=== PATIENT | female | born 1970 | race Two or more races ===

== ENCOUNTER 2021-10-05 12:54 | Emergency (ER) | payer OTHER, SELFPAY ==
[2021-10-05 13:49] VITALS: BP 100/37; PULSE 75; RESP 18; TEMP 36.4; O2SAT 98; BMI 31.8
--- NOTE | 2021-10-05 14:33 | ED_ITS ---
HPI - General Adult General Chief complaint: General Medical Stated complaint: psych med refill Time Seen by Provider: 10/05/21 14:33 Source: patient Mode of arrival: ambulatory Limitations: no limitations History of Present Illness HPI narrative: Patient unable to get a doctor, therapist, or a psychiatrist. Patient has been weaning off of her medication because she doesn't have a doctor. She is here because of no medication. No thoughts of her hurting herself. Related Data Previous Rx's Medication Instructions Recorded bupropion HCl 150 mg tablet,12 hr 150 mg PO Q12H #30 tab 10/05/21 sustained-release fluoxetine 40 mg capsule (Prozac) 40 mg PO DAILY #20 cap 10/05/21 gabapentin 800 mg tablet 800 mg PO BID #30 tab 10/05/21 lamotrigine 200 mg tablet 200 mg PO DAILY #20 tab 10/05/21 (Lamictal) levothyroxine 25 mcg capsule 25 mcg PO DAILY #20 cap 10/05/21 Allergies Allergy/AdvReac Type Severity Reaction Status Date / Time hydroxyzine [From Vistaril] Allergy Nausea and Verified 10/05/21 13:55 Vomiting Review of Systems Constitutional: Constitutional: Reports no additional constitutional complaints Eyes: Eyes: Reports no additional eye complaints ENT: Denies dizziness Cardiovascular: Cardiovascular: Reports no additional cardiovascular co mplaints Respiratory: Respiratory: Reports as per HPI Gastrointestinal: Gastrointestinal: Reports no additional gastrointestinal complaints Genitourinary: Genitourinary: Reports no additional female genitourinary complaints Musculoskeletal: Musculoskeletal: Reports no additional musculoskeletal complaints Integumentary/Breasts: Skin/Breast: Denies rash Neurologic: Reports system reviewed and no additional complaints, except as documented, Denies dizziness and Denies Sensory deficit (Neuro) Psychiatric: Psychiatric: Denies anxiety [facility] Social History Social History Advance Directives: No Advance Directives Information Provided: Yes Patient : No Physical Exam ED Vital Signs: Vital Signs - 24 hr 10/05/21 13:49 Temperature 97.5 F Pulse Rate 75 Respiratory Rate 18 Blood Pressure 100/37 L Pulse Oximetry 98 BMI result Body Mass Index 31.8 Const General: healthy appearing Nutritional Appearance: average body habitus Orientation/consciousness: oriented to person and patient oriented x3 Limitations: no limitations HENMT Head: Yes normal to inspection Ears: external ears normal General nose exam: Normal external nose present Mouth: Normal oral and palatal mucosa present and oropharynx normal Throat: Yes posterior oropharynx normal Eyes General: appearance normal, both eyes and all related structures Neck Neck: Yes normal visual inspection Chest Chest palpation & inspection: normal inspection of the chest Resp Auscultation: clear to auscultation bilaterally Cardio Jugular venous distension: no JVD Rate: regular rate Rhythm: regular rhythm Heart sounds: S1 normal heart sound present and S2 normal heart sound present GI Inspection: Yes normal to inspection Palpation (GI): Soft to palpation, nontender and No hepatosplenomegaly present Auscultation: normal bowel sounds General: Yes no CVA tenderness Back/Spine/Pelvis Back: no CVA tenderness Skin General skin exam: no rashes or lesions noted Neuro General: oriented to person and patient oriented x3 Cranial nerves: Yes CN's II-XII intact bilaterally Motor exam (neuro): 5/5 motor strength present throughout Sensory Exam: No Sensory deficit (Neuro) Extrem General: Yes normal to inspection Psych Other: flat affect Course Reevaluation(s) Reevaluation #1: wrote the patient for non narcotic medications while she tries to sort out her insurance Time: 14:45 Discharge Plan Discharge Clinical Impression: Depression, Bipolar 1 disorder Patient Disposition: Home, Self-Care Instructions: Bipolar Disorder (ED), Depression (ED) Prescriptions: New bupropion HCl 150 mg tablet sustained-release 12 hr 150 mg PO Q12H Qty: 30 0RF lamotrigine [Lamictal] 200 mg tablet 200 mg PO DAILY Qty: 20 0RF fluoxetine [Prozac] 40 mg capsule 40 mg PO DAILY Qty: 20 0RF levothyroxine 25 mcg capsule 25 mcg PO DAILY Qty: 20 0RF gabapentin 800 mg tablet 800 mg PO BID Qty: 30 0RF Referrals: Physician,Unknown J [Primary Care Provider] - 10 days
--- NOTE | 2021-10-05 14:53 | PC.NURSE ---
pt is grateful for quick service today and help getting medications. pt is waiting for pcp appt.
== END 2021-10-05 14:54 | disposition home or self-care (01) ==
PROVIDERS: Emergency Provider Emergency Medicine
DX: F31.30 Bipolar disorder, current episode depressed, mild or moderate severity, unspecified (principal)
CPT/HCPCS: 99282; 99283

== ENCOUNTER 2022-05-07 12:17 | Emergency (ER) | payer OTHER, SELFPAY ==
[2022-05-07 12:19] VITALS: BP 103/47; PULSE 62; RESP 18; TEMP 37.2; O2SAT 99; BMI 33.6
--- NOTE | 2022-05-07 12:31 | ED_ITS ---
HPI - Female Genitourinary General Chief complaint: Urogenital-Female Stated complaint: uti Time Seen by Provider: 05/07/22 12:27 Source: patient Mode of arrival: ambulatory Limitations: no limitations History of Present Illness HPI Narrative: 51 yo female here with 2 days of urinary frequency, urgency, dysuria, suprapubic discomfort, nausea. No abdominal pain, back pain, fever or vomiting. Patient tells me that she is in a monogamous relationship with 1 male partner. She has had no new sexual partners. She is not concern for STD exposure. She does have an IUD so does not get her period. Related Data Previous Rx's Medication Instructions Recorded bupropion HCl 150 mg tablet,12 hr 150 mg PO Q12H #30 tabs 10/05/21 sustained-release fluoxetine 40 mg capsule (Prozac) 40 mg PO DAILY #20 caps 10/05/21 gabapentin 800 mg tablet 800 mg PO BID #30 tabs 10/05/21 lamotrigine 200 mg tablet 200 mg PO DAILY #20 tabs 10/05/21 (Lamictal) levothyroxine 25 mcg capsule 25 mcg PO DAILY #20 caps 10/05/21 nitrofurantoin 100 mg PO Q12H 5 days #10 caps 05/07/22 monohydrate/macrocrystals 100 mg capsule (Macrobid) phenazopyridine 200 mg tablet 200 mg PO TID PRN pain 6 doses #10 05/07/22 (Pyridium) tabs Allergies Allergy/AdvReac Type Severity Reaction Status Date / Time hydroxyzine [From Vistaril] Allergy Nausea and Verified 10/05/21 13:55 Vomiting Review of Systems Review of Systems: Yes all other systems are reviewed and are negative Constitutional: Constitutional: Reports no additional constitutional complaints, Denies body ache(s), Denies chills, Denies fever(s), Denies headache(s) and Denies weakness Eyes: Eyes: Reports no additional eye complaints and Denies change in vision ENT: Reports system reviewed and no additional complaints, except as documented, Denies dizziness, Denies headache(s), Denies nasal congestion, Denies nasal discharge and Denies neck pain Cardiovascular: Cardiovascular: Reports no additional cardiovascular complaints, Denies chest pain, Denies leg edema and Denies dyspnea Respiratory: Respiratory: Reports no additional respiratory complaints, Denies cough and Denies dyspnea Gastrointestinal: Gastrointestinal: Reports no additional gastrointestinal complaints, Denies abdominal pain, Denies diarrhea, Reports nausea and Denies vomiting Genitourinary: Genitourinary: Reports no additional female genitourinary complaints, Reports dysuria, Denies pelvic pain, Denies flank pain, Denies urinary incontinence, Reports urinary urgency, Denies vaginal discharge, Denies vaginal dryness, Denies vaginal odor and Denies vaginal pruritus Musculoskeletal: Musculoskeletal: Reports no additional musculoskeletal complaints, Denies back pain, Denies arthralgias, Denies joint swelling, Denies neck pain, Denies numbness and Denies tingling Integumentary/Breasts: Skin/Breast: Reports system reviewed and no additional complaints, except as docu and Denies rash Neurologic: Reports system reviewed and no additional complaints, except as documented, Denies Abnormal speech present, Denies dizziness, Denies headache(s), Denies numbness, Denies tingling and Denies weakness PMFSH Past Medical History Attestation statement: The following information was validated with the patient. Source: old records reviewed and nursing notes reviewed Social History Social History Advance Directives: No Advance Directives Information Provided: No Physical Exam Vital Signs: Vital Signs: Last Vital Signs Temp 98.9 F 05/07/22 12:19 Pulse 62 05/07/22 12:19 Resp 18 05/07/22 12:19 BP 103/47 L 05/07/22 12:19 Pulse Ox 99 05/07/22 12:19 O2 Del Method 05/07/22 12:19 BMI result Body Mass Index 33.6 Const: General: cooperative, healthy appearing, comfortable and no acute distress Orientation/consciousness: patient oriented x3 Limitations: no limitations HEENT: Head: Yes normal to inspection Ears: hearing grossly normal bilaterally General nose exam: Normal external nose present Face and sinus: Yes normal facial exam Mouth: Normal oral and palatal mucosa present Throat: Yes posterior oropharynx normal Eyes: General: appearance normal, both eyes and all related structures Pupils: Equal, round and reactive pupils present Neck: Neck: Yes normal visual inspection Chest: Chest palpation & inspection: normal inspection of the chest Resp: Effort & Inspection: normal respiratory effort Auscultation: clear to auscultation bilaterally Cardio: Rate: regular rate Rhythm: regular rhythm Peripheral pulses: Peripheral pulses 2+ throughout GI: Inspection: Yes normal to inspection Palpation (GI): Soft to palpation and nontender Auscultation: normal bowel sounds : General: Yes no CVA tenderness Back/Spine/Pelvis: Back: no CVA tenderness Thoracic/Lumbar Spine: thoracic and lumbar spine normal to inspection Skin: General skin exam: no rashes or lesions noted Neuro: General: patient oriented x3, no focal motor deficits and normal sensation to monofilament Cranial nerves: Yes Equal, round and reactive pupils present Cognition (Neuro): normal cognition Speech: No Abnormal speech present Gait exam (Neuro): Normal gait present Motor exam (neuro): 5/5 motor strength present throughout Extrem: General: Yes normal to inspection Course Course Course Narrative: Now report vaginal discharge. No pelvic pain. Patient will self swab for CT NG, BV panel. Reevaluation(s) Reevaluation #1: [id number] consistent with UTI. Patient was also tested for CT NG and BV. Patient is not concern for STDs and would like to wait for results to come back before being treated. She is aware she may need to return for treatment. Reviewed worrisome signs and symptoms of when to return to the emergency room. Comfortable discharge home. MDM - Female Genitourinary MDM Narrative Medical decision making narrative: 51-year-old female here with UTI symptoms since yesterday. On exam abdomen is soft and nontender. No CVA tenderness. Vitals are stable. Overall nontoxic appearing. Will send UA Medical Records Attestation: I reviewed the patient's medical records. Lab Data Attestation: I reviewed the patient's lab results. Labs: Lab Results 05/07/22 05/07/22 Range/Units 12:52 12:52 Urine Color Yellow Urine Appearance Cloudy Urine pH 7.0 (5.0-9.0) Ur Specific [place] 1.020 (1.005-1.025) Urine Protein Trace (Neg-Trace) mg/dL Urine Glucose (UA) Negative (Negative) mg/dL Urine Ketones Negative (Negative) mg/dL Urine Blood Small (1+) H (Negative) Urine Nitrite Negative (Negative) Ur Leukocyte Esterase Large (3+) H (Negative) Urine RBC 11-20 H (0-2) /HPF Urine WBC >50 H (0-5) /HPF Ur Squamous Epith Cells 0-2 (0-2) /HPF Calcium Oxalate Crystal Present Urine Bacteria 4+ (None Seen) Hyaline Casts 0-2 (0-2) /LPF Urine Test NEGATIVE (NEGATIVE) Discharge Plan Discharge Clinical Impression: Urinary tract infection Patient Disposition: Home, Self-Care Instructions: Urinary Tract Infection in Women (ED) Additional Instructions: Increase fluids, rest We sent testing for common vaginal infections and STDs. These take 1-2 days to come back. We will inform you if you need additional treatment Return for fever, vomiting, back Prescriptions: New nitrofurantoin monohyd/m-cryst [Macrobid] 100 mg capsule 100 mg PO Q12H 5 Days Qty: 10 0RF Rx Instructions: must administer with a meal/food phenazopyridine [Pyridium] 200 mg tablet 200 mg PO TID PRN (Reason: pain) Qty: 10 0RF No Action bupropion HCl 150 mg tablet sustained-release 12 hr 150 mg PO Q12H Qty: 30 0RF lamotrigine [Lamictal] 200 mg tablet 200 mg PO DAILY Qty: 20 0RF fluoxetine [Prozac] 40 mg capsule 40 mg PO DAILY Qty: 20 0RF levothyroxine 25 mcg capsule 25 mcg PO DAILY Qty: 20 0RF gabapentin 800 mg tablet 800 mg PO BID Qty: 30 0RF Referrals: Physician,Unknown J [Primary Care Provider] - Interventions: ED Discharge Assessment Last Done: 05/07/22 13:26 Discharge Date/Time: 05/07/22 13:26
[2022-05-07 13:03] LABS: Appearance Urine Cloudy; Color Urine Yellow; Glucose Urine UA Negative (Negative); Leukocyte Esterase Urine Large (3+) (Negative); Nitrite Urine Negative (Negative); UMIC TRIGGER UACC YES; Urine Blood Small (1+) (Negative); Urine Ketones Negative (Negative); Urine Protein Trace mg/dL (Neg-Trace)
[2022-05-07 13:05] LABS: UPreg QC Valid YES; Urine Pregnancy NEGATIVE (NEGATIVE)
[2022-05-07 13:22] LABS: Bacteria Urine 4+ (None Seen); Calcium Oxalate Crystals Urine Present; Hyaline Casts Urine 0-2 /LPF (0-2); Squamous Epithelial Cell Urine 0-2 /HPF (0-2); UACC Culture Trigger YES; WBC Urine >50 /HPF (0-5)
[2022-05-07 16:20] LABS: CT PCR NOT DETECTED (Not Detect.); NG PCR NOT DETECTED (Not Detect.)
[2022-05-09 08:54] LABS: BV Int Neg Control Negative (Negative); BV Int Pos Control Positive (Positive)
== END 2022-05-07 13:26 | disposition home or self-care (01) ==
PROVIDERS: Nurse Practitioner Family; Emergency Provider Emergency Medicine
DX: N39.0 Urinary tract infection, site not specified (principal); B96.20 Unspecified Escherichia coli [E. coli] as the cause of diseases classified elsewhere
CPT/HCPCS: 81001; 81003; 81025; 87086; 87088; 87186; 87480; 87491; 87510; 87591; 87660; 99282; 99283

== ENCOUNTER 2022-11-19 20:12 | Emergency (ER) | payer OTHER, SELFPAY ==
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
[2022-11-19 20:46] VITALS: BP 104/63; PULSE 84; RESP 16; TEMP 36.6; O2SAT 96; BMI 34.5
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
[2022-11-19] MEDS: Cyclobenzaprine HCl 10 MG TABLET PO (21:47)
[2022-11-19] MEDS: Ketorolac Tromethamine 60 MG/2 ML VIAL IM (21:47)
== END 2022-11-19 22:15 | disposition home or self-care (01) ==
PROVIDERS: Emergency Provider Emergency Medicine
DX: S39.012A Strain of muscle, fascia and tendon of lower back, initial encounter (principal); S13.4XXA Sprain of ligaments of cervical spine, initial encounter; S23.3XXA Sprain of ligaments of thoracic spine, initial encounter; V43.52XA Car driver injured in collision with other type car in traffic accident, initial encounter; Z79.899 Other long term (current) drug therapy; Y93.9 Activity, unspecified; Y92.410 Unspecified street and highway as the place of occurrence of the external cause; Y99.9 Unspecified external cause status
CPT/HCPCS: 72040; 72072; 72100; 96372; 99284; J1885

== ENCOUNTER 2022-12-16 23:41 | Emergency (ER) | payer OTHER, SELFPAY ==
[2022-12-17 00:11] VITALS: BP 135/92; PULSE 81; RESP 19; TEMP 36.7; O2SAT 96
--- NOTE | 2022-12-17 00:12 | MHC.EDTECH ---
This Tech assumed care of Patient upon arrival. Pt vital signs done. Juice given to Patient.
[2022-12-17 00:18] VITALS: BMI 25.7
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
== END 2022-12-17 00:59 | disposition home or self-care (01) ==
PROVIDERS: Emergency Provider Student in an Organized Health Care Education/Training Program
DX: F19.99 Other psychoactive substance use, unspecified with unspecified psychoactive substance-induced disorder (principal)
CPT/HCPCS: 99282; 99284

== ENCOUNTER 2023-02-11 23:47 | Emergency (ER) | payer OTHER, SELFPAY ==
[2023-02-12 00:05] VITALS: BP 100/60; PULSE 84; RESP 16; TEMP 37.2; O2SAT 96; BMI 30.1
--- NOTE | 2023-02-12 00:44 | ED.OVERDOSE ---
HPI - Overdose General Chief Complaint: Overdose Stated Complaint: OD Time Seen by Provider: 02/12/23 00:31 Source: patient Mode of arrival: ambulatory Limitations: no limitations History of Present Illness HPI Narrative: Patient history of substance abuse on methadone says that she took 1 back of today was found unresponsive at the was given 0.4 mg Narcan defects became very agitated after Narcan no signs of head injury saturating 96% on room air Related Data Previous Rx's Medication Instructions Recorded bupropion HCl 150 mg tablet,12 hr 150 mg PO Q12H #30 tabs 10/05/21 sustained-release fluoxetine 40 mg capsule (Prozac) 40 mg PO DAILY #20 caps 10/05/21 gabapentin 800 mg tablet 800 mg PO BID #30 tabs 10/05/21 lamotrigine 200 mg tablet 200 mg PO DAILY #20 tabs 10/05/21 (Lamictal) levothyroxine 25 mcg capsule 25 mcg PO DAILY #20 caps 10/05/21 nitrofurantoin 100 mg PO Q12H 5 days #10 caps 05/07/22 monohydrate/macrocrystals 100 mg capsule (Macrobid) phenazopyridine 200 mg tablet 200 mg PO TID PRN pain 6 doses #10 05/07/22 (Pyridium) tabs acetaminophen 650 mg 650 mg PO Q8H PRN pain #14 tabs 11/19/22 tablet,extended release (Tylenol 8 Hour) cyclobenzaprine 10 mg tablet 10 mg PO TID PRN muscle spasm #7 11/19/22 tabs Allergies Allergy/AdvReac Type Severity Reaction Status Date / Time hydroxyzine [From Vistaril] Allergy Nausea and Verified 10/05/21 13:55 Vomiting Review of Systems Review of Systems: Yes all other systems are reviewed and are negative [facility] Social History Social History Alcohol intake: current Alcohol intake frequency: 0-2 drinks per day Alcohol type: beer and hard liquor Advance Directives: No Advance Directives Information Provided: Yes Physical Exam Vital Signs: Vital Signs: Last Vital Signs Temp 98.3 F 02/12/23 01:42 Pulse 58 02/12/23 01:42 Resp 14 02/12/23 01:42 BP 95/59 L 02/12/23 01:42 Pulse Ox 96 02/12/23 01:42 O2 Del Method Nasal Cannula 02/12/23 01:42 O2 Flow Rate 2 02/12/23 01:42 BMI result Body Mass Index 30.1 Appearance: Alert. Oriented X3. No acute distress. Lethargic deep sleep arousable to painful stimuli Eyes: Pinpoint pupil, No Nystagmus ENT: Pharynx normal. Oral Mucosa moist no signs of head injury Neck: Normal inspection. Neck supple. No Midline tenderness CVS: Normal heart rate and rhythm. Pulses normal. Respiratory: No respiratory distress. Equal air entry bilateral, no wheezing/rales/rhonchi Abdomen: Soft and nontender. Bowel sounds are present, no mass palpable, no CVA tenderness Skin: Skin warm and dry. Normal skin color. Normal skin turgor. Extremities: No lower extremity edema. No calf tenderness Neuro: Oriented X 3. No motor deficit. Medical Decision Making Medical Decision Making [facility] Narrative: Patient drug screen showed positive for cocaine marijuana PCP and opiate, fentanyl patient still sleepy and will watch untill gets further sober at time of discharge patient is sober ambulatory Lab Data [facility] Lab Attestation statement: I reviewed the patient's lab results. Labs: Lab Results 02/12/23 02/12/23 Range/Units 01:03 01:03 Urine Color Dark Yellow Urine Appearance Cloudy Urine pH 6.0 (5.0-9.0) Ur Specific [place] 1.025 (1.005-1.025) Urine Protein 30 (1+) H (Neg-Trace) mg/dL Urine Glucose (UA) Negative (Negative) mg/dL Urine Ketones Trace (Negative) mg/dL Urine Blood Negative (Negative) Urine Nitrite Negative (Negative) Ur Leukocyte Esterase Negative (Negative) Urine RBC 3-5 H (0-2) /HPF Urine WBC 0-5 (0-5) /HPF Ur Squamous Epith Cells 0-2 (0-2) /HPF Calcium Oxalate Crystal Present Urine Bacteria None Seen (None Seen) Hyaline Casts 0-2 (0-2) /LPF Urine Opiates Screen POSITIVE H (Not Detect) Urine Fentanyl Screen POSITIVE H (Not Detect) Ur Barbiturates Screen Not Detected (Not Detect) Ur Phencyclidine Scrn POSITIVE H (Not Detect) Ur Amphetamines Screen Not Detected (Not Detect) U Benzodiazepines Scrn Not Detected (Not Detect) Urine Cocaine Screen POSITIVE H (Not Detect) U Marijuana (THC) Screen POSITIVE H (Not Detect) Discharge Plan Discharge Clinical Impression: Polysubstance abuse Patient Disposition: Home, Self-Care Instructions: Polysubstance Abuse (ED) Additional Instructions: Stop using drugs and follow with detox Prescriptions: No Action bupropion HCl 150 mg tablet sustained-release 12 hr 150 mg PO Q12H Qty: 30 0RF lamotrigine [Lamictal] 200 mg tablet 200 mg PO DAILY Qty: 20 0RF fluoxetine [Prozac] 40 mg capsule 40 mg PO DAILY Qty: 20 0RF levothyroxine 25 mcg capsule 25 mcg PO DAILY Qty: 20 0RF gabapentin 800 mg tablet 800 mg PO BID Qty: 30 0RF nitrofurantoin monohyd/m-cryst [Macrobid] 100 mg capsule 100 mg PO Q12H 5 Days Qty: 10 0RF Rx Instructions: must administer with a meal/food phenazopyridine [Pyridium] 200 mg tablet 200 mg PO TID PRN (Reason: pain) Qty: 10 0RF cyclobenzaprine 10 mg tablet 10 mg PO TID PRN (Reason: muscle spasm) Qty: 7 0RF acetaminophen [Tylenol 8 Hour] 650 mg tablet extended release 650 mg PO Q8H PRN (Reason: pain) Qty: 14 0RF Interventions: ED Discharge Assessment Last Done: 02/12/23 04:11 Discharge Date/Time: 02/12/23 04:13
--- NOTE | 2023-02-12 01:06 | MHC.EDTECH ---
PATIENT BELONGINGS ARE LOCKED UP IN DECON ,PATIENT URINE SAMPLE COLLECTED AND SENT TO LAB,VITALS SIGN TAKEN ,PT DRANK 480 ML WATER AND ATE 2 PUDDINGS .
[2023-02-12 01:11] LABS: Appearance Urine Cloudy; Color Urine Dark Yellow; Glucose Urine UA Negative (Negative); Leukocyte Esterase Urine Negative (Negative); Nitrite Urine Negative (Negative); Specific Gravity - Urine 1.025 (1.005-1.025); UMIC TRIGGER UACC YES; Urine Blood Negative (Negative); Urine Ketones Trace mg/dL (Negative); Urine Protein 30 (1+) mg/dL (Neg-Trace)
[2023-02-12 01:12] VITALS: BP 104/69; PULSE 81; RESP 16; TEMP 36.4; O2SAT 98
[2023-02-12 01:20] LABS: Amphetamine Screen Urine Not Detected (Not Detect); Barbiturates, Urine Not Detected (Not Detect); Benzodiazepines Screen Urine Not Detected (Not Detect); Cannabinoid Screen Urine POSITIVE (Not Detect); Cocaine Screen Urine POSITIVE (Not Detect); Fentanyl, urine POSITIVE (Not Detect); Opiate Screen Urine POSITIVE (Not Detect); Phencyclidine Screen Urine POSITIVE (Not Detect)
[2023-02-12 01:24] LABS: Bacteria Urine None Seen (None Seen); Calcium Oxalate Crystals Urine Present; Hyaline Casts Urine 0-2 /LPF (0-2); Squamous Epithelial Cell Urine 0-2 /HPF (0-2); WBC Urine 0-5 /HPF (0-5)
[2023-02-12 01:42] VITALS: BP 95/59; PULSE 58; RESP 14; TEMP 36.8; O2SAT 96
== END 2023-02-12 04:13 | disposition home or self-care (01) ==
PROVIDERS: Emergency Provider Internal Medicine
DX: F19.10 Other psychoactive substance abuse, uncomplicated (principal); Z79.899 Other long term (current) drug therapy
CPT/HCPCS: 80307; 81001; 99283

== ENCOUNTER 2023-02-15 20:23 | Emergency (ER) | payer OTHER, SELFPAY ==
--- NOTE | ~2023-02-15 | CT_ITS ---
EXAMINATION: CT ABDOMEN AND PELVIS WITH CONTRAST CLINICAL INFORMATION: Abdominal pain COMPARISON: None available. TECHNIQUE: Multidetector volumetric images were obtained from the superior aspect of the liver through the pubic symphysis following administration 85 mL of Omnipaque 350 intravenous contrast. Sagittal and coronal reformatted images were obtained on the technologist's workstation. Oral contrast: No This CT examination was performed using dose optimization techniques as appropriate, variously including the following: *Automated exposure control *Adjustment of mA and/or kV according to patient size (this includes techniques or standardized protocols for targeted exams where dose is matched to indication/reason for exam; i.e. extremities or head) *Use of iterative reconstruction technique DLP: 1255 mGy-cm FINDINGS: LUNG BASES: The visualized lung bases are unremarkable. LIVER, GALLBLADDER, AND BILIARY TREE: The liver is normal in size, shape, and attenuation. No focal hepatic lesion or biliary ductal dilatation is present. The gallbladder is unremarkable with no evidence of radiopaque gallstones, gallbladder wall thickening, or obvious pericholecystic inflammatory changes. PANCREAS: Mild atrophy with no focal abnormality. SPLEEN: Unremarkable. ADRENAL GLANDS: Normal left adrenal gland. 1.1 cm right adrenal gland nodule measuring 100 Hounsfield units is indeterminate. KIDNEYS AND URETERS: The kidneys are normal in size, shape, and attenuation. No hydronephrosis, hydroureter, or calculi seen. No perinephric stranding. BLADDER: Unremarkable. GASTROINTESTINAL TRACT: The small and large bowel are unremarkable. The appendix is unremarkable. ABDOMINAL WALL: No significant hernia is appreciated. LYMPH NODES: Normal. VASCULAR: Unremarkable. PELVIC VISCERA: Unremarkable. OSSEOUS STRUCTURES: No acute or suspicious osseous abnormality. Mild degenerative changes at the right hip. CT/CT abdomen pelvis w IV con IMPRESSION: 1. No acute findings in the abdomen or pelvis. No inflammatory changes. 2. Indeterminate 1.1 cm right adrenal gland nodule. Recommend 1 year follow-up adrenal protocol CT. Also, if clinically indicated, consider concurrent laboratory evaluation for possible pheochromocytoma. Fleischner guidelines were followed.
[2023-02-15 20:39] VITALS: BP 165/83; BP 170/100; PULSE 72; PULSE 80; RESP 20; TEMP 37.4; O2SAT 100; O2SAT 99; BMI 25.0
--- NOTE | 2023-02-15 21:43 | PC.NURSE ---
Pt cleansed of emesis and fecal incontinence. Respirations even and unlabored.
[2023-02-15 21:45] VITALS: BP 122/69; PULSE 53; RESP 16; TEMP 36.7; O2SAT 97
--- NOTE | 2023-02-15 21:47 | MHC.EDTECH ---
PATIENT WAS INCONTINENT OF LARGE AMOUNT OF FIRM STOOL AND HAD VOMIT ON HERSELF ,CARE GIVEN AND BEDDING CHANGE ,PT VITALS SIGN TAKEN ,PT SLEEPING ,STORE GR[employer] MERCH[employer]ER AT BED SIDE .
--- NOTE | 2023-02-15 22:29 | ED.OVERDOSE ---
HPI - Overdose General Chief Complaint: ETOH/Substance Use Stated Complaint: overdose., narcan given Time Seen by Provider: 02/15/23 20:56 Source: EMS and police Mode of arrival: EMS Limitations: altered mental status History of Present Illness HPI Narrative: Patient comes to the emergency room via EMS in police custody. Patient overdosed, given 4 mg of intranasal Narcan per EMS and became combative, EMS and police officers with the patient. Patient arrives calm and alert. However, patient is not answering any questions, you staring into space. According to bystanders EMS and PD there was no head injury Related Data Previous Rx's Medication Instructions Recorded bupropion HCl 150 mg tablet,12 hr 150 mg PO Q12H #30 tabs 10/05/21 sustained-release fluoxetine 40 mg capsule (Prozac) 40 mg PO DAILY #20 caps 10/05/21 gabapentin 800 mg tablet 800 mg PO BID #30 tabs 10/05/21 lamotrigine 200 mg tablet 200 mg PO DAILY #20 tabs 10/05/21 (Lamictal) levothyroxine 25 mcg capsule 25 mcg PO DAILY #20 caps 10/05/21 nitrofurantoin 100 mg PO Q12H 5 days #10 caps 05/07/22 monohydrate/macrocrystals 100 mg capsule (Macrobid) phenazopyridine 200 mg tablet 200 mg PO TID PRN pain 6 doses #10 05/07/22 (Pyridium) tabs acetaminophen 650 mg 650 mg PO Q8H PRN pain #14 tabs 11/19/22 tablet,extended release (Tylenol 8 Hour) cyclobenzaprine 10 mg tablet 10 mg PO TID PRN muscle spasm #7 11/19/22 tabs Allergies Allergy/AdvReac Type Severity Reaction Status Date / Time hydroxyzine [From Vistaril] Allergy Nausea and Verified 02/15/23 20:39 Vomiting Review of Systems Review of Systems: Yes Unobtainable due to mental status PMFSH Social History Social History Alcohol intake: current Alcohol intake frequency: 0-2 drinks per day Alcohol type: beer and hard liquor Advance Directives: No Advance Directives Information Provided: No Physical Exam Vital Signs: Vital Signs: Last Vital Signs Temp 98.0 F 02/15/23 21:45 Pulse 53 07/26/23 21:45 Resp 16 02/15/23 21:45 BP 122/69 02/15/23 21:45 Pulse Ox 97 02/15/23 21:45 O2 Del Method Room Air 02/15/23 21:45 BMI result Body Mass Index 25.0 Const: Other: Appearance: Alert. Intoxicated, somnolent but easily arousable Eyes: Pupils equal, round and reactive to light. ENT: Pharynx normal. Neck: Normal inspection. Neck supple. No lymph nodes noted. No crepitus CVS: Normal heart rate and rhythm. Pulses normal. Normal S1 and S2 Respiratory: No respiratory distress. Breath sounds normal. No Wheezing. No rales Abdomen: Soft and nontender. No rigidity. No distention. Skin: Skin warm and dry. Normal skin color. Normal skin turgor. Extremities: No lower extremity edema. No Lacerations. No Rash Neuro: moving all extremities. CN 2 through 12 grossly intact Psych: calm, somnolent, easily arousable but falls right back asleep Course Course Course Narrative: -patient is in police custody -once patient is sober and ambulatory, patient can be discharged to PD -physician observation started at 22:00 Discharge Plan Discharge Clinical Impression: Overdose Patient Disposition: Still a Patient Prescriptions: No Action bupropion HCl 150 mg tablet sustained-release 12 hr 150 mg PO Q12H Qty: 30 0RF lamotrigine [Lamictal] 200 mg tablet 200 mg PO DAILY Qty: 20 0RF fluoxetine [Prozac] 40 mg capsule 40 mg PO DAILY Qty: 20 0RF levothyroxine 25 mcg capsule 25 mcg PO DAILY Qty: 20 0RF gabapentin 800 mg tablet 800 mg PO BID Qty: 30 0RF nitrofurantoin monohyd/m-cryst [Macrobid] 100 mg capsule 100 mg PO Q12H 5 Days Qty: 10 0RF Rx Instructions: must administer with a meal/food phenazopyridine [Pyridium] 200 mg tablet 200 mg PO TID PRN (Reason: pain) Qty: 10 0RF cyclobenzaprine 10 mg tablet 10 mg PO TID PRN (Reason: muscle spasm) Qty: 7 0RF acetaminophen [Tylenol 8 Hour] 650 mg tablet extended release 650 mg PO Q8H PRN (Reason: pain) Qty: 14 0RF
[2023-02-15] MEDS: ondansetron HCL 4 MG/2 ML VIAL IM (23:48)
[2023-02-15 23:52] VITALS: BP 151/66; PULSE 53; RESP 15; TEMP 37.2; O2SAT 98
[2023-02-16 02:00] VITALS: BP 163/72; PULSE 56; RESP 16; TEMP 37.2; O2SAT 97
[2023-02-16 03:00] VITALS: BP 175/103; PULSE 54; RESP 16; TEMP 37.8; O2SAT 98
--- NOTE | 2023-02-16 03:27 | PC.NURSE ---
Blood collected via straight stick after multiple attempts for PIV. Plan for ultrasound guided PIV placement per Dr. Kerns.
[2023-02-16 03:31] LABS: MANUAL DIFF FLAG NO
[2023-02-16 03:32] LABS: Basophils Percent Auto 0.3 % (0-2); Eosinophils Percent Auto 0.1 % (0-4); Hematocrit 43.4 % (37.0-47.0); Hemoglobin 14.2 g/dl (12.0-16.0); Imm Gran Abs Auto 0.03 X10*3/uL (0.00-0.03); Imm Gran Pct Auto 0.3 % (0.0-0.4); Lymphocytes Absolute Auto 1.3 X10*3/uL (1.2-4.9); Lymphocytes Percent Auto 12.9 % (20-40); Mean Corpuscular HGB Conc 32.7 g/dl (31.0-35.0); Mean Corpuscular Hemoglobin 29.6 pg (27.0-33.0); Mean Corpuscular Volume 90.6 fL (80.0-98.0); Mean Platelet Volume 10.2 fL (9.4-12.3); Monocytes Absolute Auto 0.5 X10*3/uL (0.1-1.2); Neutrophils Absolute Auto 8.5 x10*3/uL (2.0-8.3); Neutrophils Percent Auto 81.4 % (45-73); Platelet Count 242 X10*3/uL (160-400); Red Blood Count 4.79 X10*6/uL (4.20-5.50); Red Cell Distribution Width 13.9 % (11.0-16.0); White Blood Count 10.4 X10*3/uL (4.8-10.8)
[2023-02-16 03:53] LABS: Alanine Aminotransferase 48 U/L (0-31); Albumin Level 4.6 g/dL (3.5-5.0); Alkaline Phosphatase 98 U/L (39-117); Anion Gap 19 (12-20); Aspartate Amino Transferase 57 U/L (5-31); Bilirubin Total 0.7 mg/dL (0.0-1.0); Blood Urea Nitrogen 11 mg/dL (9-16); Calcium 9.8 mg/dL (8.4-10.2); Carbon Dioxide 20 mmol/L (22-29); Chloride 105 mmol/L (96-108); Creatinine Clr Calc Pharmacy 74.7; Estimated Glomerular Filt Rate > 60; Ethanol < 10 mg/dL; Glucose Random 161 mg/dL (60-115); Lipase 23 U/L (8-78); Potassium 3.8 mmol/L (3.3-5.1); Sodium 140 mmol/L (135-145); Total Protein 8.5 g/dL (6.5-8.0)
[2023-02-16] MEDS: Prochlorperazine Edisylate 10 MG/2 ML VIAL IVPUSH (03:54)
[2023-02-16] MEDS: 0.9 % Sodium Chloride 1,000 ML 999 ML IV (03:54)
[2023-02-16 03:58] LABS: HCG Quantitative 4 mIU/mL
[2023-02-16 04:00] VITALS: BP 151/80; PULSE 70; RESP 18; O2SAT 98
--- NOTE | 2023-02-16 04:15 | PC.NURSE ---
Pt cleansed of urinary and fecal incontinence.
[2023-02-16 05:08] VITALS: PULSE 67
[2023-02-16] MEDS: cloNIDine HCL 0.1 MG TABLET PO (05:26)
[2023-02-16] MEDS: TiZANidine HCL 4 MG TABLET 8 MG PO (05:26)
[2023-02-16 05:56] VITALS: BP 175/85; PULSE 58; RESP 16; TEMP 37.4; O2SAT 98
[2023-02-16] MEDS: iohexoL 350 MG/ML 100 ML INFUS..BTL IV (06:16)
--- NOTE | 2023-02-16 06:26 | PC.NURSE ---
Pt cleansed of fecal and urinary incontinence. Purewick applied at this time.
--- NOTE | 2023-02-16 06:27 | MHC.EDTECH ---
patient was soiled with large amount of stool and vomit ,care given and bedding change ,pt resting quietly in bed .
== END 2023-02-16 07:32 ==
PROVIDERS: Student in an Organized Health Care Education/Training Program; Emergency Provider Emergency Medicine
DX: T50.901A Poisoning by unspecified drugs, medicaments and biological substances, accidental (unintentional), initial encounter (principal); Y92.9 Unspecified place or not applicable; R11.2 Nausea with vomiting, unspecified; Z79.899 Other long term (current) drug therapy
CPT/HCPCS: 36415; 36573; 74177; 80053; 80307; 83690; 84702; 85025; 96361; 96372; 96374; 99284; J2405; Q9967

== ENCOUNTER 2024-01-10 12:03 | Emergency (ER) | payer OTHER, SELFPAY ==
[2024-01-10 12:09] VITALS: BP 119/59; PULSE 66; RESP 18; TEMP 36.6; O2SAT 99; BMI 33.7
--- NOTE | 2024-01-10 12:21 | ED_ITS ---
HPI - General Adult General Chief complaint: General Medical Stated complaint: quest uti Time Seen by Provider: 01/10/24 12:16 Source: patient Mode of arrival: ambulatory Limitations: no limitations History of Present Illness ED Provider: Sharifa Patton PA-C HPI narrative: 53-year-old female with history of polysubstance use and bipolar disorder presents for evaluation of a possible UTI. She endorses a 5 day history of urinary frequency and urgency, feeling tired, generally unwell, and some crampy lower abdominal pain. Denies dysuria, fevers/chills, flank pain, vomiting. She has a history of recurrent UTIs and states that they typically present with these symptoms. Onset (ago): day(s) (5) Location: abdomen (cramping, lower abdomen) Radiation: non-radiation Associated symptoms: malaise Treatments prior to arrival: none Related Data Previous Rx's ?Medication ?Instructions ?Recorded bupropion HCl 150 mg tablet,12 hr 150 mg PO Q12H #30 tabs 10/05/21 sustained-release fluoxetine 40 mg capsule (Prozac) 40 mg PO DAILY #20 caps 10/05/21 gabapentin 800 mg tablet 800 mg PO BID #30 tabs 10/05/21 lamotrigine 200 mg tablet 200 mg PO DAILY #20 tabs 10/05/21 (Lamictal) levothyroxine 25 mcg capsule 25 mcg PO DAILY #20 caps 10/05/21 nitrofurantoin 100 mg PO Q12H 5 days #10 caps 05/07/22 monohydrate/macrocrystals 100 mg capsule (Macrobid) phenazopyridine 200 mg tablet 200 mg PO TID PRN pain 6 doses #10 05/07/22 (Pyridium) tabs acetaminophen 650 mg 650 mg PO Q8H PRN pain #14 tabs 11/19/22 tablet,extended release (Tylenol 8 Hour) cyclobenzaprine 10 mg tablet 10 mg PO TID PRN muscle spasm #7 11/19/22 tabs ondansetron 4 mg disintegrating 4 mg PO Q8H 3 days #9 tabs 01/10/24 tablet Allergies Allergy/AdvReac Type Severity Reaction Status Date / Time hydroxyzine [From Vistaril] Allergy Nausea and Verified 01/10/24 12:10 Vomiting Review of Systems 2 Constitutional: Constitutional: Reports no additional constitutional complaints, Denies chills, Reports fatigue, Denies fever(s), Reports malaise and Denies night sweats Eyes: Eyes: Reports no additional eye complaints, Denies blurry vision, Denies change in vision, Denies diplopia, Denies eye discharge, Denies loss of vision and Denies eye pain ENT: Denies dizziness Cardiovascular: Cardiovascular: Reports no additional cardiovascular complaints, Denies chest pain, Denies lightheadedness, Denies Loss of Consciousness and Denies dyspnea Respiratory: Respiratory: Reports no additional respiratory complaints and Denies dyspnea Gastrointestinal: Gastrointestinal: Reports no additional gastrointestinal complaints, Reports abdominal pain (minimal - now resolved), Denies melena, Denies hematochezia, Denies change in bowel habits, Denies change in stool character, Reports nausea and Denies vomiting Genitourinary: Genitourinary: Denies hematuria, Denies urinary frequency, Denies dysuria, Denies flank pain, Denies urinary incontinence, Denies urinary hesitancy and Reports urinary urgency Musculoskeletal: Musculoskeletal: Reports no additional musculoskeletal complaints, Denies numbness and Denies tingling Neurologic: Denies dizziness, Denies loss of vision, Denies numbness and Denies tingling Psychiatric: Psychiatric: Reports no additional psychiatric complaints Endocrine: Endocrine: Reports no additional endocrine complaints and Reports fatigue Hematologic/Lymphatic: Hematologic/Lymphatic: Reports no additional hematologic/lymphatic complaints Allergic/Immunologic: Allergic/Immunologic: Reports no additional allergic/immunologic complaints PMFSH Past Medical History Attestation statement: The following information was validated with the patient. Source: old records reviewed and nursing notes reviewed Social History Social History Alcohol intake: current Alcohol intake frequency: 0-2 drinks per day Alcohol type: beer and hard liquor Advance Directives: No Advance Directives Information Provided: No Physical Exam ED Vital Signs: Vital Signs - 24 hr 01/10/24 12:09 01/10/24 14:44 Temperature 97.9 F 97.9 F Pulse Rate 66 66 Respiratory Rate 18 18 Blood Pressure 119/59 L 119/59 L Pulse Oximetry 99 99 Oxygen Delivery Method Room Air Room Air BMI result Body Mass Index 33.7 Const General: cooperative, no acute distress, alert and awake Nutritional Appearance: well nourished Orientation/consciousness: patient oriented x3 Limitations: no limitations [facility] Head: Yes normal to inspection and Yes atraumatic Ears: hearing grossly normal bilaterally and external ears normal General nose exam: Normal external nose present, no nasal discharge noted and no epistaxis Face and sinus: Yes normal facial exam, No abrasion and No laceration Mouth: Normal oral and palatal mucosa present, no drooling and no muffled voice Eyes General: appearance normal, both eyes and all related structures Periorbital: periorbital findings normal Eyelids: Yes eyelids normal Conjunctivae: conjunctivae normal Pupils: Equal, round and reactive pupils present EOM: EOMs intact bilaterally Neck Neck: Yes normal visual inspection, Yes full ROM and Yes no lymphadenopathy Chest Chest palpation & inspection: normal inspection of the chest Resp Effort & Inspection: normal respiratory effort and able to speak in complete sentences GI Inspection: Yes normal to inspection Palpation (GI): Soft to palpation, not firm, nontender and no guarding Neuro General: patient oriented x3 and moves all extremities Cranial nerves: Yes Equal, round and reactive pupils present Cognition (Neuro): normal cognition Motor exam (neuro): 5/5 motor strength present throughout Sensory Exam: Normal double simultaneous stimulation for sensation Coordination: [id number] test normal Extrem General: Yes normal to inspection, Yes full ROM and Yes capillary refill normal Psych Appearance: grossly normal Mental Status: mental status grossly normal Affect: normal affect Attitude: cooperative Thought process: Normal thought process present Thought content: Normal thought content present Insight: Good insight present (Psych) Medications Administered Discontinued Medications Generic Name Dose Route Start Last Admin Trade Name Freq PRN Reason Stop Dose Admin Ondansetron HCl 4 mg 01/10/24 14:03 01/10/24 14:11 Ondansetron Odt 4 Mg Tab.Rapdis TRANSLINGU 01/10/24 14:04 4 mg ONCE ONE Administration Medical Decision Making Medical Decision Making [facility] Narrative: Patient is a 53 year old assigned female at with a history of bipolar disorder and polysubstance abuse presenting to the emergency department today with concerns of a UTI. Patient's physical exam was unremarkable. Patient's blood work was unremarkable. Patient's urine showed no acute process. I explained my physical exam findings as well as all test results to the patient. I answered all questions asked by the patient. Patient received ODT Zofran which she stated helped her symptoms significantly. I stressed the importance of the patient taking her medication as prescribed. I stressed the importance of the patient following up with her primary care provider. I stressed the importance of the patient returning to the emergency department immediately if her symptoms were to worsen or if she were to develop any dizziness, shortness of breath, difficulty breathing, chest pain, blurry vision, loss of vision, nausea, vomiting, abdominal pain, fever, chills, back pain, or any other complaints. Patient verbalized agreement and understanding with this treatment plan and discharge. Differential Diagnosis Differential Diagnoses: The differential diagnosis associated with the presentation includes UTI Viral illness Gastroenteritis Cystitis Admission/Observation Consideration of admission/observation: Escalation of care including admission/observation considered Patient would have been admitted to the hospital had her work up had any findings where hospital admission was appropriate and her clinical presentation warranted hospital admission. Lab Data [facility] Lab Attestation statement: I reviewed the patient's lab results. My interpretation of these results are in the [facility] Rationale portion of this note. 01/10/24 13:19 01/10/24 13:19 Labs: Lab Results 01/10/24 01/10/24 01/10/24 Range/Units 12:35 13:13 13:19 WBC 4.3 L (4.8-10.8) X10*3/uL RBC 4.92 (4.20-5.50) X10*6/uL Hgb 14.9 (12.0-16.0) g/dl Hct 44.6 (37.0-47.0) % MCV 90.7 (80.0-98.0) fL MCH 30.3 (27.0-33.0) pg MCHC 33.4 (31.0-35.0) g/dl RDW 13.9 (11.0-16.0) % Plt Count 183 (160-400) X10*3/uL MPV 10.3 (9.4-12.3) fL Immature Gran % (Auto) 0.2 (0.0-0.4) % Neut % (Auto) 47.6 (45-73) % Lymph % (Auto) 42.6 H (20-40) % [place] % (Auto) 7.3 (2-11) % Eos % (Auto) 1.6 (0-4) % Baso % (Auto) 0.7 (0-2) % Lymph # (Auto) 1.8 (1.2-4.9) X10*3/uL [place] # (Auto) 0.3 (0.1-1.2) X10*3/uL Eos # (Auto) 0.1 (0.0-0.4) X10*3/uL Baso # (Auto) 0.0 (0.0-0.2) X10*3/uL Abs Immat Gran (auto) 0.01 (0.00-0.03) X10*3/uL Absolute Neuts (auto) 2.0 (2.0-8.3) x10*3/uL Absolute Nucleated RBC 0.000 (0.0-0.012) X10*3/uL Nucleated RBC % (auto) 0.0 (0.0-0.2) /100WBC Sodium 141 (135-145) mmol/L Potassium 4.3 (3.3-5.1) mmol/L Chloride 107 (96-108) mmol/L Carbon Dioxide 28 (22-29) mmol/L Anion Gap 10 L (12-20) BUN 14 (9-16) mg/dL Creatinine 0.84 (0.5-1.4) mg/dL Estim Creat Clear Calc 82.4 Estimated GFR > 60 Random Glucose 84 (60-115) mg/dL Calcium 10.2 (8.4-10.2) mg/dL Magnesium 2.2 (1.6-2.6) mg/dL Total Bilirubin 0.5 (0.0-1.0) mg/dL AST 28 (5-31) U/L ALT 32 H (0-31) U/L Alkaline Phosphatase 118 H (39-117) U/L Total Protein 8.1 H (6.5-8.0) g/dL Albumin 4.5 (3.5-5.0) g/dL Urine Color Yellow Urine Appearance Cloudy Urine pH 7.5 (5.0-9.0) Ur Specific [place] 1.020 (1.005-1.025) Urine Protein Negative (Neg-Trace) mg/dL Urine Glucose (UA) Negative (Negative) mg/dL Urine Ketones Negative (Negative) mg/dL Urine Blood Negative (Negative) Urine Nitrite Negative (Negative) Ur Leukocyte Esterase Negative (Negative) Influenza Type A (PCR) NEGATIVE (Negative) Influenza Type B (PCR) NEGATIVE (Negative) RSV RNA Qual (PCR) NEGATIVE (Negative) SARS-CoV-2 RNA (RT-PCR) NEGATIVE (Negative) S. pyogenes GrpA ALONSO Negative (Negative) Tests considered The following testing was considered but not selected: I considered obtaining a CT of the abdomen/pelvis however, the patient's current clinical presentation did not warrant this. I discussed this with the patient who verbalized agreement and understanding. Prescription Management I considered prescription management with: Other (patient prescribed an anti- emetic.) Discharge Plan Discharge Clinical Impression: Nausea Patient Disposition: Home, Self-Care Instructions: Acute Nausea and Vomiting (ED) Additional Instructions: Follow up with your primary care provider. Return to the emergency department immediately if your symptoms worsen or if you develop any dizziness, shortness of breath, difficulty breathing, chest pain, blurry vision, loss of vision, nausea, vomiting, abdominal pain, fever, chills, back pain, or any other complaints. Prescriptions: New ondansetron 4 mg tablet,disintegrating 4 mg PO Q8H 3 Days Qty: 9 0RF No Action bupropion HCl 150 mg tablet sustained-release 12 hr 150 mg PO Q12H Qty: 30 0RF lamotrigine [Lamictal] 200 mg tablet 200 mg PO DAILY Qty: 20 0RF fluoxetine [Prozac] 40 mg capsule 40 mg PO DAILY Qty: 20 0RF levothyroxine 25 mcg capsule 25 mcg PO DAILY Qty: 20 0RF gabapentin 800 mg tablet 800 mg PO BID Qty: 30 0RF nitrofurantoin monohyd/m-cryst [Macrobid] 100 mg capsule 100 mg PO Q12H 5 Days Qty: 10 0RF Rx Instructions: must administer with a meal/food phenazopyridine [Pyridium] 200 mg tablet 200 mg PO TID PRN (Reason: pain) Qty: 10 0RF cyclobenzaprine 10 mg tablet 10 mg PO TID PRN (Reason: muscle spasm) Qty: 7 0RF acetaminophen [Tylenol 8 Hour] 650 mg tablet extended release 650 mg PO Q8H PRN (Reason: pain) Qty: 14 0RF Referrals: [facility] [[place] Group] (Call to establish and follow up with a primary care provider. If you already have a primary care provider, please follow up with them.) [facility] [place] [[facility]] [facility] [Provider Group] Interventions: ED Discharge Assessment Last Done: 01/10/24 14:44 Discharge Date/Time: 01/10/24 14:44 Print Language: Portuguese
[2024-01-10 12:46] LABS: Appearance Urine Cloudy; Color Urine Yellow; Glucose Urine UA Negative (Negative); Leukocyte Esterase Urine Negative (Negative); Nitrite Urine Negative (Negative); PH 7.5 (5.0-9.0); Urine Blood Negative (Negative); Urine Ketones Negative (Negative); Urine Protein Negative (Neg-Trace)
[2024-01-10 13:26] LABS: MANUAL DIFF FLAG NO
[2024-01-10 13:28] LABS: Basophils Percent Auto 0.7 % (0-2); Eosinophils Absolute Auto 0.1 X10*3/uL (0.0-0.4); Eosinophils Percent Auto 1.6 % (0-4); Hematocrit 44.6 % (37.0-47.0); Hemoglobin 14.9 g/dl (12.0-16.0); Imm Gran Abs Auto 0.01 X10*3/uL (0.00-0.03); Imm Gran Pct Auto 0.2 % (0.0-0.4); Lymphocytes Absolute Auto 1.8 X10*3/uL (1.2-4.9); Lymphocytes Percent Auto 42.6 % (20-40); Mean Corpuscular HGB Conc 33.4 g/dl (31.0-35.0); Mean Corpuscular Hemoglobin 30.3 pg (27.0-33.0); Mean Corpuscular Volume 90.7 fL (80.0-98.0); Mean Platelet Volume 10.3 fL (9.4-12.3); Monocytes Absolute Auto 0.3 X10*3/uL (0.1-1.2); Monocytes Percent Auto 7.3 % (2-11); Neutrophils Percent Auto 47.6 % (45-73); Platelet Count 183 X10*3/uL (160-400); Red Blood Count 4.92 X10*6/uL (4.20-5.50); Red Cell Distribution Width 13.9 % (11.0-16.0); White Blood Count 4.3 X10*3/uL (4.8-10.8)
[2024-01-10 13:37] LABS: IDNOW Serial# 58CA691E; Strep A Nucleic Acid Negative (Negative)
[2024-01-10 13:50] LABS: Alanine Aminotransferase 32 U/L (0-31); Albumin Level 4.5 g/dL (3.5-5.0); Alkaline Phosphatase 118 U/L (39-117); Anion Gap 10 (12-20); Aspartate Amino Transferase 28 U/L (5-31); Bilirubin Total 0.5 mg/dL (0.0-1.0); Blood Urea Nitrogen 14 mg/dL (9-16); Calcium 10.2 mg/dL (8.4-10.2); Carbon Dioxide 28 mmol/L (22-29); Chloride 107 mmol/L (96-108); Creatinine Clr Calc Pharmacy 82.4; Estimated Glomerular Filt Rate > 60; Glucose Random 84 mg/dL (60-115); Magnesium 2.2 mg/dL (1.6-2.6); Potassium 4.3 mmol/L (3.3-5.1); Sodium 141 mmol/L (135-145); Total Protein 8.1 g/dL (6.5-8.0)
[2024-01-10 14:03] LABS: Influenza A PCR NEGATIVE (Negative); Influenza B PCR NEGATIVE (Negative); Resp Syncy Virus RNA Qual PCR NEGATIVE (Negative); SARS COV2 PCR INHOUSE NEGATIVE (Negative)
[2024-01-10] MEDS: Ondansetron ODT 4 MG TAB.RAPDIS TRANSLINGU (14:11)
[2024-01-10 14:44] VITALS: BP 119/59; PULSE 66; RESP 18; TEMP 36.6; O2SAT 99
== END 2024-01-10 14:44 | disposition home or self-care (01) ==
PROVIDERS: Physician Assistant; Physician Assistant Medical; Emergency Provider Emergency Medicine
DX: R11.0 Nausea (principal); R35.0 Frequency of micturition; R39.15 Urgency of urination; R25.2 Cramp and spasm; R53.81 Other malaise; J02.9 Acute pharyngitis, unspecified; Z03.818 Encounter for observation for suspected exposure to other biological agents ruled out; Z79.899 Other long term (current) drug therapy
CPT/HCPCS: 0241U; 36415; 80053; 81003; 83735; 85025; 87651; 99282; 99283

== ENCOUNTER 2024-05-23 13:49 | Emergency (ER) | payer OTHER, SELFPAY ==
[2024-05-23] VITALS (10 sets, daily range): BP systolic 85–118; BP diastolic 41–74; PULSE 60–95; RESP 10–18; TEMP 36.6–36.8; O2SAT 95–100; BMI 28.3; BMI 30.6
--- NOTE | 2024-05-23 14:10 | ED.AMS ---
HPI - Altered Mental Status General Chief Complaint: ETOH/Substance Use Stated Complaint: AMS,NUDE ON SCENE,CREAMING,BROKEN PLATE PER EMS Time Seen by Provider: 05/23/24 14:09 History of Present Illness HPI narrative: Patient is a 53-year-old female with a history of polysubstance abuse. Previous history of PCP, cocaine, fentanyl, opiates patient was found running around naked in her backyard. Yelling and screaming. EMS was called. Patient was then sent to the ED for further evaluation. On arrival patient extremely agitated moving all extremities yelling screaming. Unable to deescalate using verbal techniques. 5 security officers was present along with nursing intact. Patient was given 5 of Haldol to Ativan 50 of Benadryl. Monitor very closely. Related Data Previous Rx's ?Medication ?Instructions ?Recorded bupropion HCl 150 mg tablet,12 hr 150 mg PO Q12H #30 tabs 10/05/21 sustained-release fluoxetine 40 mg capsule (Prozac) 40 mg PO DAILY #20 caps 10/05/21 gabapentin 800 mg tablet 800 mg PO BID #30 tabs 10/05/21 lamotrigine 200 mg tablet 200 mg PO DAILY #20 tabs 10/05/21 (Lamictal) levothyroxine 25 mcg capsule 25 mcg PO DAILY #20 caps 10/05/21 nitrofurantoin 100 mg PO Q12H 5 days #10 caps 05/07/22 monohydrate/macrocrystals 100 mg capsule (Macrobid) phenazopyridine 200 mg tablet 200 mg PO TID PRN pain 6 doses #10 05/07/22 (Pyridium) tabs acetaminophen 650 mg 650 mg PO Q8H PRN pain #14 tabs 11/19/22 tablet,extended release (Tylenol 8 Hour) cyclobenzaprine 10 mg tablet 10 mg PO TID PRN muscle spasm #7 11/19/22 tabs ondansetron 4 mg disintegrating 4 mg PO Q8H 3 days #9 tabs 01/10/24 tablet Allergies Allergy/AdvReac Type Severity Reaction Status Date / Time hydroxyzine [From Vistaril] Allergy Nausea and Verified 05/23/24 14:21 Vomiting Review of Systems Review of Systems: Patient refused to answer specific review of system PMFSH Past Medical History Attestation statement: The following information was validated with the patient. Social History Social History Alcohol intake: current Alcohol intake frequency: 0-2 drinks per day Alcohol type: beer and hard liquor Smoked in Last 30 Days: Yes Use of substances other than those prescribed or required for medical reasons: Yes Substance Use Type: Hallucinogens and Marijuana Do you have a plan to hurt others: No Plan Patient : No Physical Exam ED Vital Signs: Vital Signs - 24 hr 05/23/24 14:15 05/23/24 14:16 05/23/24 14:31 Temperature 98 F 97.8 F Pulse Rate 86 95 Respiratory Rate 18 17 10 L Blood Pressure 94/44 L 94/74 Pulse Oximetry 98 98 Oxygen Delivery Method Nasal Cannula Nasal Cannula Oxygen Flow Rate 2 2 05/23/24 14:50 05/23/24 15:16 05/23/24 15:29 Temperature 98.3 F Pulse Rate 86 81 78 Respiratory Rate 16 Blood Pressure 95/49 L 93/52 L 90/41 L Pulse Oximetry 98 Oxygen Delivery Method Nasal Cannula Oxygen Flow Rate 2 05/23/24 15:42 Temperature 97.8 F Pulse Rate 76 Respiratory Rate 13 Blood Pressure 85/46 L Pulse Oximetry 98 Oxygen Delivery Method Nasal Cannula Oxygen Flow Rate 2 BMI result Body Mass Index 28.3 Appearance: Alert. Extremely agitated moving all extremities yelling and screaming Eyes: Pupils dilated ENT: Pharynx normal. Neck: Normal inspection. Neck supple. No lymph nodes noted. No crepitus CVS: Tachycardic Respiratory: Yelling and screaming seems like the airways grossly intact. Abdomen: Soft and nontender. No rigidity. No distention. Skin: Skin warm and dry. Normal skin color. Normal skin turgor. Extremities: No lower extremity edema. Neurovascular intact to all extremities. No Lacerations. No Rash Neuro: Agitated moving all extremities Medications Administered Discontinued Medications Generic Name Dose Route Start Last Admin Trade Name Freq PRN Reason Stop Dose Admin Diphenhydramine HCl 50 mg 05/23/24 15:19 05/23/24 15:25 Diphenhydramine Hcl 50 Mg/Ml Vial IM 05/23/24 15:20 50 mg ONCE ONE Administration Haloperidol Lactate 5 mg 05/23/24 15:19 05/23/24 15:25 Haloperidol Lactate 5 Mg/Ml Vial IM 05/23/24 15:20 5 mg ONCE ONE Administration Lorazepam 2 mg 05/23/24 15:19 05/23/24 15:25 Lorazepam 2 Mg/Ml Vial IM 05/23/24 15:20 2 mg ONCE ONE Administration Medical Decision Making Medical Decision Making [facility] Narrative: Patient was given Haldol Ativan and Benadryl. Will monitor extremely carefully. Patient did not state any suicidal homicidal ideation. Will reassess once patient became more cooperative. Labs ordered. Will get an EKG. Will also get baseline labs. On recheck patient now more cooperative. Sleeping. Will monitor closely. Previous note was reviewed. Has a long history of polysubstance abuse. Differential Diagnosis Differential Diagnoses: The differential diagnosis associated with the presentation includes Polysubstance abuse, hypoglycemia, abnormal EKG Admission/Observation Consideration of admission/observation: Escalation of care including admission/observation considered Lab Data [facility] Lab Attestation statement: I reviewed the patient's lab results. 05/23/24 15:07 05/23/24 15:07 Labs: Lab Results 05/23/24 Range/Units 15:07 WBC 4.3 L (4.8-10.8) X10*3/uL RBC 3.91 L D (4.20-5.50) X10*6/uL Hgb 12.2 (12.0-16.0) g/dl Hct 36.1 L (37.0-47.0) % MCV 92.3 (80.0-98.0) fL MCH 31.2 (27.0-33.0) pg MCHC 33.8 (31.0-35.0) g/dl RDW 13.4 (11.0-16.0) % Plt Count 184 (160-400) X10*3/uL MPV 9.6 (9.4-12.3) fL Immature Gran % (Auto) 0.2 (0.0-0.4) % Neut % (Auto) 75.1 H (45-73) % Lymph % (Auto) 17.4 L (20-40) % [place] % (Auto) 6.6 (2-11) % Eos % (Auto) 0.5 (0-4) % Baso % (Auto) 0.2 (0-2) % Lymph # (Auto) 0.7 L (1.2-4.9) X10*3/uL [place] # (Auto) 0.3 (0.1-1.2) X10*3/uL Eos # (Auto) 0.0 (0.0-0.4) X10*3/uL Baso # (Auto) 0.0 (0.0-0.2) X10*3/uL Abs Immat Gran (auto) 0.01 (0.00-0.03) X10*3/uL Absolute Neuts (auto) 3.2 (2.0-8.3) x10*3/uL Absolute Nucleated RBC 0.000 (0.0-0.012) X10*3/uL Nucleated RBC % (auto) 0.0 (0.0-0.2) /100WBC Sodium 141 (135-145) mmol/L Potassium 3.7 (3.3-5.1) mmol/L Chloride 107 (96-108) mmol/L Carbon Dioxide 28 (22-29) mmol/L Anion Gap 10 L (12-20) BUN 14 (9-16) mg/dL Creatinine 0.90 (0.5-1.4) mg/dL Estim Creat Clear Calc 65.2 Estimated GFR > 60 Random Glucose 124 H (60-115) mg/dL Calcium 10.0 (8.4-10.2) mg/dL Total Bilirubin 0.4 (0.0-1.0) mg/dL Direct Bilirubin 0.1 (0.0-0.5) mg/dL AST 42 H (5-31) U/L ALT 47 H (0-31) U/L Alkaline Phosphatase 92 (39-117) U/L Total Protein 6.8 (6.5-8.0) g/dL Albumin 3.9 (3.5-5.0) g/dL Independent Interpretation I performed an independent interpretation of an: EKG (My interpretation of patient's EKG showed a sinus rhythm heart rate is 90 MS QRS QTC normal no acute ST segment elevation.) Independent Historian Clinical information obtained from an independent historian. History obtained from or confirmed by: EMS External Record Review External record reviewed: Prior outpatient labs Chronic Conditions Polysubstance abuse Social Determinants Patient?s care significantly limited by Social Determinants of Health including: Inadequate housing, Low income, Alcoholism and drug addiction in family and Problems related to primary support group Critical Care Time Critical Care Time Critical Care Time: Yes Total Critical Care Time: 40 Attestation: I have personally provided 40 minutes of critical care time exclusive of time spent on separately billable procedures. ?Time includes review of lab data, radiology results, discussion with consultants, and monitoring for potential decompensation. ?Interventions were performed as documented above Discharge Plan Discharge Clinical Impression: Polysubstance abuse Patient Disposition: Still a Patient Prescriptions: No Action bupropion HCl 150 mg tablet sustained-release 12 hr 150 mg PO Q12H Qty: 30 0RF lamotrigine [Lamictal] 200 mg tablet 200 mg PO DAILY Qty: 20 0RF fluoxetine [Prozac] 40 mg capsule 40 mg PO DAILY Qty: 20 0RF levothyroxine 25 mcg capsule 25 mcg PO DAILY Qty: 20 0RF gabapentin 800 mg tablet 800 mg PO BID Qty: 30 0RF nitrofurantoin monohyd/m-cryst [Macrobid] 100 mg capsule 100 mg PO Q12H 5 Days Qty: 10 0RF Rx Instructions: must administer with a meal/food phenazopyridine [Pyridium] 200 mg tablet 200 mg PO TID PRN (Reason: pain) Qty: 10 0RF cyclobenzaprine 10 mg tablet 10 mg PO TID PRN (Reason: muscle spasm) Qty: 7 0RF acetaminophen [Tylenol 8 Hour] 650 mg tablet extended release 650 mg PO Q8H PRN (Reason: pain) Qty: 14 0RF ondansetron 4 mg tablet,disintegrating 4 mg PO Q8H 3 Days Qty: 9 0RF Print Language: Polish
--- NOTE | 2024-05-23 14:15 | ECG_ITS ---
Test Reason : OD Blood Pressure : / mmHG Vent. Rate : 093 BPM Atrial Rate : 093 BPM P-R Int : 148 ms QRS Dur : 078 ms QT Int : 390 ms P-R-T Axes : 038 026 007 degrees QTc Int : 484 ms Normal sinus rhythm Artifact in tracing On the available leads, no obvious abnormality No previous ECGs available Referred By: Bettina Valladares Electronically Signed By:JAYDEN ALVARADO
--- NOTE | 2024-05-23 14:36 | PC.NURSE ---
Pt presented to ED via EMS, was yelling, became violent and agitated. Security, supercharger repair supervisor and techs at bedside trying multiple times to deescalate situation with no success. ?of drug use, pt admits to smoking marijuana, denies other drugs or alcohol. Alert and confused, breathing even but elevated. Skin sweaty. Pt has lac on left hand, small, approx 1 inch,bleeding controlled, unknown where from. Pt changed over by security and then medicated by supercharger repair supervisor
[2024-05-23 15:10] LABS: MANUAL DIFF FLAG NO
[2024-05-23 15:16] LABS: Basophils Percent Auto 0.2 % (0-2); Eosinophils Percent Auto 0.5 % (0-4); Hematocrit 36.1 % (37.0-47.0); Hemoglobin 12.2 g/dl (12.0-16.0); Imm Gran Abs Auto 0.01 X10*3/uL (0.00-0.03); Imm Gran Pct Auto 0.2 % (0.0-0.4); Lymphocytes Absolute Auto 0.7 X10*3/uL (1.2-4.9); Lymphocytes Percent Auto 17.4 % (20-40); Mean Corpuscular HGB Conc 33.8 g/dl (31.0-35.0); Mean Corpuscular Hemoglobin 31.2 pg (27.0-33.0); Mean Corpuscular Volume 92.3 fL (80.0-98.0); Mean Platelet Volume 9.6 fL (9.4-12.3); Monocytes Absolute Auto 0.3 X10*3/uL (0.1-1.2); Monocytes Percent Auto 6.6 % (2-11); Neutrophils Absolute Auto 3.2 x10*3/uL (2.0-8.3); Neutrophils Percent Auto 75.1 % (45-73); Platelet Count 184 X10*3/uL (160-400); Red Blood Count 3.91 X10*6/uL (4.20-5.50); Red Cell Distribution Width 13.4 % (11.0-16.0); White Blood Count 4.3 X10*3/uL (4.8-10.8)
[2024-05-23] MEDS: diphenhydrAMINE HCL 50 MG/ML VIAL IM (15:25)
[2024-05-23] MEDS: LORazepam 2 MG/ML VIAL IM (15:25)
[2024-05-23] MEDS: Haloperidol Lactate 5 MG/ML VIAL IM (15:25)
[2024-05-23 15:35] LABS: Alanine Aminotransferase 47 U/L (0-31); Albumin Level 3.9 g/dL (3.5-5.0); Alkaline Phosphatase 92 U/L (39-117); Anion Gap 10 (12-20); Aspartate Amino Transferase 42 U/L (5-31); Bilirubin Direct 0.1 mg/dL (0.0-0.5); Bilirubin Total 0.4 mg/dL (0.0-1.0); Blood Urea Nitrogen 14 mg/dL (9-16); Carbon Dioxide 28 mmol/L (22-29); Chloride 107 mmol/L (96-108); Creatinine Clr Calc Pharmacy 65.2; Estimated Glomerular Filt Rate > 60; Glucose Random 124 mg/dL (60-115); Potassium 3.7 mmol/L (3.3-5.1); Sodium 141 mmol/L (135-145); Total Protein 6.8 g/dL (6.5-8.0)
--- NOTE | 2024-05-23 16:02 | PC.NURSE ---
Pt continues to sleep, NSR on bedside monitor. SPO2 dropped to 89% on RA, placed on 2L O2 NC and improved to >94%. Continues to have 1:1 sitter.
[2024-05-23 17:51] LABS: Ethanol < 10 mg/dL
--- NOTE | 2024-05-23 19:08 | PC.NURSE ---
report received from Edna Burden RN, assume care of pt at this time
--- NOTE | 2024-05-23 22:00 | PC.NURSE ---
pt conts to rest quietly, with eyes closed, resp with ease, conts 1:1 sitter, cont plan of care
[2024-05-24] VITALS (8 sets, daily range): BP systolic 117–138; BP diastolic 54–79; PULSE 57–99; RESP 16–18; TEMP 36.6–37.1; O2SAT 93–98
--- NOTE | 2024-05-24 00:59 | MHC.EDTECH ---
This pct assumed care of Patient at 2300 ,vitals taken ,Patient sleeping ,1:1 Patient Observer at bedside ,will continue to monitor .
--- NOTE | 2024-05-24 01:56 | PC.NURSE ---
pt awake and talking at this time, pt states she is ready to go home, explained to pt, she could not go, until seen by the care team
--- NOTE | 2024-05-24 03:25 | PC.NURSE ---
pt want her methadone, she goes to the clinic at [address] [place] [address], in [facility], unable to verify to the AM
--- NOTE | 2024-05-24 04:15 | MHC.EDTECH ---
0400 rounding done ,vitals taken ,Patient continue to be sleeping ,Breaths are even and unlabored ,Patient Observer continue to bed at bedside ,Plan of care continue .
--- NOTE | 2024-05-24 05:52 | PC.NURSE ---
resting quietly, with eyes closed, resp with ease, pt remains on a 1:1 sitter. no acute distress noted, cont plan of care
--- NOTE | 2024-05-24 06:55 | PC.NURSE ---
report given to Alice PATEL
--- NOTE | 2024-05-24 09:15 | PC.NURSE ---
Late charting d/t pt care. Resumed care of pt at 0700. Pt resting on stretcher with eyes closed, respirations even and unlabored, no increased wob/sob noted, NSR on conveyor monitor, HR- 80s. 1:[address] for safety[address] Care team at bedside for evaluation. Call miranda within reach, all needs met at this time.
--- NOTE | 2024-05-24 09:29 | PC.NURSE ---
Care team at bedside. Plan for pt to be d/c with daughter.
== END 2024-05-24 11:14 | disposition home or self-care (01) ==
PROVIDERS: Emergency Medicine Emergency Medical Services; Emergency Provider Emergency Medicine Emergency Medical Services
DX: F19.10 Other psychoactive substance abuse, uncomplicated (principal); R41.82 Altered mental status, unspecified
CPT/HCPCS: 36415; 80048; 80076; 80307; 85025; 93005; 96372; 99285; J1200; J1630; J2060; S9485

== ENCOUNTER → 2024-05-23 14:15 | Outpatient (BNV) | payer OTHER, SELFPAY | PROVIDERS: Emergency Provider Emergency Medicine Emergency Medical Services; Visit Provider Internal Medicine | DX: R41.82 Altered mental status, unspecified (principal); F19.10 Other psychoactive substance abuse, uncomplicated | CPT/HCPCS: 93010 ==